=== PATIENT | female | born 1980 | race Caucasian/White ===

== ENCOUNTER 2022-08-27 08:17 | Observation (INO) | payer BC ==
[~2022-08-27] VITALS: Ht 157.5 cm; Wt 104.2 kg
[~2022-08-27 08:17] MED LIST: PLEXUS BIO CLEANSE PO; PROAIR HFA0.09 MG/AC IH; ULTRAM 50MG TAB50 MG PO; WELLBUTRIN XL150 MG PO; ZYRTEC 10MG10 MG PO; [UNRECOGNIZED DRUG - OTHER] PO
[2022-08-27 09:46] VITALS: BP 129/66; PULSE 74; TEMP 98.2
--- NOTE | 2022-08-27 10:21 | NUR ---
Patient received to the floor by EMS from [facility] alert and oriented. VSS stable, Lungs CTA, Bowel sound audible. Patient reports of pain at RLQ and rated pain level 5/10. Patient received pain medication from [place] before leaving to the surgical unit. Patient oriented to room and family members at the bedside.
[2022-08-27 13:07] VITALS: BP 105/64; PULSE 69; TEMP 99.1
--- NOTE | 2022-08-27 14:27 | NUR ---
Dr. Amaury Adams notified for [employer] consult.
[2022-08-27 15:33] VITALS: BP 119/67; PULSE 74; TEMP 98.2
--- NOTE | 2022-08-27 18:28 | NUR ---
Patient sitting up in bed watching TV. Reports of mild discomfort at the RLQ. Toradol administered . Ice chips and water offered.
[2022-08-27 20:25] VITALS: BP 121/68; PULSE 70; TEMP 98.1
[2022-08-27 23:55] VITALS: BP 111/59; PULSE 78; TEMP 98.2
[2022-08-28 03:52] VITALS: BP 110/60; PULSE 70; TEMP 98
[2022-08-28 07:18] VITALS: BP 116/67; PULSE 70; TEMP 97.8
--- NOTE | 2022-08-28 07:25 | NUR ---
VSS, PT A&O X4, PT ABLE TO MAKE NEEDS KNOWN, PT RESTING IN BED EATING BREAKFAST AND TOLERATING, CALL LIGHT IN REACH
[2022-08-28 07:26] LABS: HEMATOCRIT 38.7 % (37.0-47.0); HEMOGLOBIN 12.8 g/dl (12.5-16.0); MEAN CELL VOLUME 98 fl (80.0-100.0); MEAN CORPUSCULAR HEMOGLOBIN 32 pg (27-31); MEAN CORPUSCULAR HGB CONC 33 g/dl (33.0-37.0); MEAN PLATELET VOLUME 9.8 fl (7.4-10.4); PLATELET COUNT 277 K/mm3 (130-400); RED BLOOD COUNT 3.97 M/mm3 (4.10-5.30); REDCELL DISTRIBUTION WIDTH-CV 12.8 % (11.5-14.5)
--- NOTE | 2022-08-28 11:12 | NUR ---
[facility] met with the patient and her , Girma ([phone]), to discuss discharge plan. The patient lives in [place] with her and their youngest son, Vineet. She reports independence with ADLs and does not have any DME. The patient's PCP is Dr. Rosana Marquez and she receives her medications from [facility] . The patient does not have a DPOA-HC, but she was interested in obtaining a form. [facility] provided. The patient plans to return home with her family upon discharge. No additional needs at this time. *Discharge plan: home with family*
[2022-08-28 11:34] VITALS: BP 123/70; PULSE 68; TEMP 98.9
--- NOTE | 2022-08-28 12:42 | NUR ---
Initial visit; Patient thanked [place] Roofer for looking in on her and offering God's blessings to her and family member.
[2022-08-28 16:02] VITALS: BP 127/70; PULSE 72; TEMP 98
--- NOTE | 2022-08-28 16:19 | NUR ---
PT DISMISSED TO HOME TODAY, IV DC'D, PT EDUCATED ON DISMISSAL INSTRUCTIONS/MEDICATION INSTRUCTIONS/FOLLOW UP INSTRUCTIONS, PT AND PT'S VOICED NO QUESTIONS/CONCERNS AT TIME OF DISMISSAL, PT AMBULATED TO EXIT, NO FURTHER CONCERNS
== END 2022-08-28 16:22 | disposition home or self-care (01) ==
LOC: MEDICAL 08:17 → SURG 09:31
PROVIDERS: ADMIT Surgery
DX: R10.31 Right lower quadrant pain (principal); R11.2 Nausea with vomiting, unspecified; N80.351 Endometriosis of the right pelvic sidewall, unspecified depth
CPT/HCPCS: G0378; J1885; J2405; J7120